=== PATIENT | male | born 1990 | race Caucasian/White ===

== ENCOUNTER → 2023-05-18 12:38 | Outpatient (REF) | payer OTHER, SELFPAY | LOC: HWRAD 12:38 | PROVIDERS: ATTENDING PHYSICIAN Nurse Practitioner Adult Health | DX: E04.1 Nontoxic single thyroid nodule (principal) | CPT/HCPCS: 76536 ==

== ENCOUNTER → 2023-11-28 13:20 | Outpatient (REF) | payer OTHER, SELFPAY | LOC: HWRAD 13:20 | PROVIDERS: ATTENDING PHYSICIAN Urology; FAMILY PHYSICIAN Nurse Practitioner Adult Health | DX: M62.89 Other specified disorders of muscle (principal); N30.10 Interstitial cystitis (chronic) without hematuria; N53.12 Painful ejaculation | CPT/HCPCS: 76770 ==